=== PATIENT | male | born 1950 | race Caucasian/White ===

== ENCOUNTER 2022-04-24 14:50 | Emergency (ER) | payer MEDICARE ==
[~2022-04-24] VITALS: Ht 177.8 cm; Wt 95.3 kg
[2022-04-24] MEDS ORDERED: ANAPROX DS550 MG PO (16:39)
[2022-04-24 16:56] VITALS: BP 159/76
== END 2022-04-24 17:02 | disposition home or self-care (01) ==
LOC: ER 14:57
DX: M25.511 Pain in right shoulder (principal); M19.011 Primary osteoarthritis, right shoulder; I10 Essential (primary) hypertension; E78.5 Hyperlipidemia, unspecified; E03.9 Hypothyroidism, unspecified
CPT/HCPCS: 99282

== ENCOUNTER → 2025-01-25 | Day surgery (SDC) | payer MEDICARE ==
[~2025-01-25] MED LIST: ANAPROX DS550 MG PO; BACLOFEN10 MG PO; BENZONATATE200 MG PO; BUDESONIDE0.5 MG/2 M INH; COMBIVENT RESPIM4 GM IH; ENULOSE10 GM/15 M PO; FAMOTIDINE20 MG PO; FENTANYL CITRATE/PF 100MCG/2 ML INJ ONE; FEROSUL325 MG PO; FLOMAX0.4 MG PO; GABAPENTIN300 MG PO; GLYCOPYRROLATE INJ 0.2 MG/ML VIAL ONE; GUAIFENESI100 MG/5 M PO; HYDROCODON-ACE1 EA11 PO; LEVOTHYROXINE112 MCG PO; LIDOCAINE HCL 2% LOCAL INJ 5 ML SDV VIAL INJ ONE; NIFEDIPINE ER30 M1 PO; ONDANSETRON HCL INJ 2MG/ML 2ML 2 MG/ML VIAL ONE; PROAIR DIGIHAL90 MCG INH; PROPOFOL IV EMULSION 10 MG/ML 20 ML VIAL ONE; SERTRALINE HCL50 MG PO; SEVOFLURANE INHAL SOLN 250 ML PEN BTL ONE; TRAZODONE HCL100 MG PO; TYLENOL EXTRA500 MG PO
[2025-01-25 10:27] LABS: BASOPHILS # (AUTO) 0.2 (0.0-0.1); BASOPHILS % 2.5 % (0.0-1.0); EOSINOPHILS # (AUTO) 0.7 (0.0-0.4); HEMATOCRIT 33.3 % (38.2-49.6); HEMOGLOBIN 10.6 g/dL (14.0-18.0); LYMPHOCYTES # (AUTO) 2.1 (1.0-3.2); MEAN CORPUSCULAR HEMOGLOBIN 27.7 pg (28-32); MEAN CORPUSCULAR HGB CONC 31.8 g/dL (31-35); MEAN CORPUSCULAR VOLUME 86.9 fL (81-99); MONOCYTES # (AUTO) 0.9 (0.2-0.8); MONOCYTES % 11.2 % (4.4-11.3); NEUTROPHILS # (AUTO) 4.5 (2.1-6.9); NEUTROPHILS % 53.1 % (38.7-80.0); PLATELET COUNT 293 x10e3/uL (140-360); RED BLOOD COUNT 3.83 x10e6/uL (4.3-5.7); RED CELL DISTRIBUTION WIDTH 18.7 % (11.7-14.4)
[2025-01-25] MEDS: GENTAMICIN 80MG/NS 100 ML 200 ML IV ONE (10:36)
[2025-01-25] MEDS: LACTATED RINGER'S 1,000 ML ONE (10:36)
[2025-01-25] MEDS: PIPERACILLIN/TAZOBACTAM 3.375 GM VIAL ONE (10:37)
[2025-01-25 10:59] LABS: ANION GAP 12.9 mmol/L (8-16); CALCIUM 9.1 mg/dL (8.4-10.2); CREATININE, SERUM 1.43 mg/dL (0.72-1.25); POTASSIUM 3.9 mmol/L (3.5-5.1); URIC ACID 6.8 mg/dL (4.0-8.0)
[2025-01-25 14:10] VITALS: TEMP 98
[2025-01-25] MEDS: PHENAZOPYRIDINE HCL 100 MG TAB ONE (14:35)
[2025-01-25] MEDS: HYDRALAZINE HCL 20 MG/ML VIAL ONE (14:38)
[2025-01-25] MEDS: ONDANSETRON HCL INJ 2MG/ML 2ML 2 MG/ML VIAL ONE (15:50)
[2025-01-25 16:25] VITALS: BP 165/98; PULSE 76; RESP 15; O2SAT 96
== END | disposition home or self-care (01) ==
LOC: OR 09:37
PROVIDERS: ATTEND Urology
DX: N20.0 Calculus of kidney (principal); Z46.6 Encounter for fitting and adjustment of urinary device; Q54.8 Other hypospadias; N39.0 Urinary tract infection, site not specified; N32.81 Overactive bladder; N40.0 Benign prostatic hyperplasia without lower urinary tract symptoms; I10 Essential (primary) hypertension; E78.5 Hyperlipidemia, unspecified; J44.9 Chronic obstructive pulmonary disease, unspecified; E03.9 Hypothyroidism, unspecified; K21.9 Gastro-esophageal reflux disease without esophagitis; D64.9 Anemia, unspecified; R00.1 Bradycardia, unspecified; I44.0 Atrioventricular block, first degree; I45.10 Unspecified right bundle-branch block; G89.29 Other chronic pain; M06.9 Rheumatoid arthritis, unspecified; M17.11 Unilateral primary osteoarthritis, right knee; M19.011 Primary osteoarthritis, right shoulder; F41.9 Anxiety disorder, unspecified; F32.A Depression, unspecified; Z79.899 Other long term (current) drug therapy
CPT/HCPCS: 36415; 52356; 71046; 74018; 74420; 80048; 84550; 85025; 87086; 87186; 93005; C1758; C1769; C2617; J0360; J1580; J2003; J2405; J2543; J2704; J3010; J7121

== ENCOUNTER → 2025-03-17 | Day surgery (SDC) | payer MEDICARE ==
[~2025-03-17] MED LIST changes: +ACETAMINOPHEN650 MG RC; +AMITRIPTYLINE100 MG PO; +CEFTRIAXONE 1 GM VIAL ONE; +DEXAMETHASONE SOD PHOS INJ 4 MG/ML SDV ONE; +DOCUSATE SODIU100 MG PO; +EPHEDRINE SULFATE INJ 50 MG/ML VIAL ONE; +MIDAZOLAM HCL 2 MG/2 ML VIAL ONE; +MIRALAX17 GM PO; +PANTOPRAZOLE SO40 MG PO; +PYRIDIUM100 MG PO
[2025-03-17] MEDS: LACTATED RINGER'S 1,000 ML ONE (11:59)
[2025-03-17] MEDS: GENTAMICIN 80MG/NS 100 ML 200 ML IV ONE (12:20)
[2025-03-17 12:28] LABS: BASOPHILS # (AUTO) 0.2 (0.0-0.1); BASOPHILS % 1.8 % (0.0-1.0); EOSINOPHILS # (AUTO) 0.6 (0.0-0.4); HEMOGLOBIN 11.3 g/dL (14.0-18.0); LYMPHOCYTES # (AUTO) 2.1 (1.0-3.2); LYMPHOCYTES % 19.5 % (18.0-39.1); MEAN CORPUSCULAR HEMOGLOBIN 26.8 pg (28-32); MEAN CORPUSCULAR HGB CONC 32.3 g/dL (31-35); MEAN CORPUSCULAR VOLUME 83.1 fL (81-99); MONOCYTES # (AUTO) 1.1 (0.2-0.8); MONOCYTES % 9.6 % (4.4-11.3); NEUTROPHILS % 63.7 % (38.7-80.0); PLATELET COUNT 292 x10e3/uL (140-360); RED BLOOD COUNT 4.21 x10e6/uL (4.3-5.7); RED CELL DISTRIBUTION WIDTH 16.7 % (11.7-14.4); WHITE BLOOD COUNT 10.99 x10e3/uL (4.8-10.8)
[2025-03-17 12:39] LABS: ANION GAP 17.5 mmol/L (8-16); CALCIUM 9.1 mg/dL (8.4-10.2); CREATININE, SERUM 2.51 mg/dL (0.72-1.25); POTASSIUM 3.5 mmol/L (3.5-5.1); URIC ACID 6.2 mg/dL (4.8-8.0)
[2025-03-17 14:46] VITALS: TEMP 97
[2025-03-17 16:30] VITALS: BP 125/78; PULSE 62; RESP 16; O2SAT 99
== END | disposition home or self-care (01) ==
LOC: OR 10:47
PROVIDERS: ATTEND Urology
DX: N20.0 Calculus of kidney (principal); Z46.6 Encounter for fitting and adjustment of urinary device; N40.1 Benign prostatic hyperplasia with lower urinary tract symptoms; R39.12 Poor urinary stream; R35.0 Frequency of micturition; I25.10 Atherosclerotic heart disease of native coronary artery without angina pectoris; I10 Essential (primary) hypertension; M19.011 Primary osteoarthritis, right shoulder; Z89.612 Acquired absence of left leg above knee; Z79.899 Other long term (current) drug therapy
CPT/HCPCS: 36415; 52356; 74018; 74420; 80048; 84550; 85025; 87086; 87186; 88300; C1769; C2617; J0696; J1580; J2003; J2250; J2405; J2704; J3010; J7121; J1100

== ENCOUNTER → 2025-04-26 | Day surgery (SDC) | payer MEDICARE ==
[~2025-04-26] MED LIST changes: +ACETAMINOPHEN 1000 MG/100 ML 100 ML IV ONE; -CEFTRIAXONE 1 GM VIAL ONE; +GENTAMICIN 80MG/NS 100 ML 200 ML IV ONE; -MIDAZOLAM HCL 2 MG/2 ML VIAL ONE; +PHENAZOPYRIDINE HCL 100 MG TAB ONE; +PHENYLEPHRINE HCL 1% 10 MG/ML VIAL ONE; +SODIUM CHLORIDE 0.9% INJ 10 ML VIAL ONE
[2025-04-26 09:46] LABS: BASOPHILS % 1.7 % (0.0-1.0); EOSINOPHILS % 6.4 % (0.0-6.0); LYMPHOCYTES % 21.4 % (18.0-39.1); MONOCYTES % 13.3 % (4.4-11.3); NEUTROPHILS % 57.0 % (38.7-80.0); RED CELL DISTRIBUTION WIDTH 18.5 % (11.7-14.4)
[2025-04-26] MEDS: SODIUM CHLORIDE 0.9% 1000ML 1,000 ML ONE (09:59)
[2025-04-26] MEDS: PIPERACILLIN/TAZOBACTAM 3.375 GM VIAL ONE (09:59)
[2025-04-26 10:10] LABS: EST GLOMERULAR FILTRATION RATE 25.0 ML/MIN (>=60)
[2025-04-26] MEDS: PHENAZOPYRIDINE HCL 100 MG TAB PO ONE ×2 (14:10)
[2025-04-26 14:50] VITALS: BP 129/76; PULSE 58; RESP 18; O2SAT 98
== END | disposition home or self-care (01) ==
LOC: OR 09:24
PROVIDERS: ATTEND Urology
DX: N20.0 Calculus of kidney (principal); Z96.0 Presence of urogenital implants; N40.1 Benign prostatic hyperplasia with lower urinary tract symptoms; R39.12 Poor urinary stream; R35.0 Frequency of micturition; Z79.899 Other long term (current) drug therapy; Z79.891 Long term (current) use of opiate analgesic; Z01.812 Encounter for preprocedural laboratory examination
CPT/HCPCS: 36415; 52352; 74018; 74420; 80048; 84550; 85025; 87086; 87186; 88300; C1758; C1766; C1769; J0131; J1100; J1580; J2003; J2371; J2405; J2543; J2704; J3010; J7030